=== PATIENT | male | born 1930 | race African-American/Black ===

== ENCOUNTER 2018-06-19 11:55 | Inpatient (IN) | payer MEDICARE, MEDICAID ==
[~2018-06-19] VITALS: Ht 182.9 cm; Wt 100.2 kg
[2018-06-19] MEDS ORDERED: FUROSEMIDE 20MG/2ML VIAL IVP ONE (12:30)
[2018-06-19] MEDS ORDERED: LEVETIRACETAM 500MG PREMIX 100 ML IV ONE (12:30)
[2018-06-19 12:52] LABS: BASOPHILS % 0.7 % (0.0-2.0); EOSINOPHILS % 4.8 % (0.0-5.0); HEMATOCRIT. 37.2 % (42.0-52.0); HEMOGLOBIN. 12.4 g/dL (14.0-18.0); LYMPHOCYTES % 35.4 % (20.0-50.0); MEAN CORPUSCULAR HEMOGLOBIN 29.6 pg (28.0-32.0); MEAN CORPUSCULAR VOLUME 88.4 fL (80.0-94.0); MEAN PLATELET VOLUME 9.1 fl (7.4-10.4); MONOCYTES % 13.8 % (2.0-8.0); NEUTROPHILS % 45.3 % (40.0-76.0); PLATELET 89 x1000/uL (130-400); RED CELL DISTRIBUTION WIDTH 13.6 % (11.6-14.6)
[2018-06-19 12:57] LABS: CHLORIDE 112 mEq/L (98-107)
[2018-06-19 12:59] LABS: INR 1.2; PARTIAL THROMBOPLASTIN TIME 30.2 sec (23.4-31.0); PROTHROMBIN TIME 12.2 sec (9.1-11.1)
[2018-06-19 13:01] LABS: ETHANOL BLOOD < 10 mg/dL
[2018-06-19 14:32] LABS: CLARITY URINE CLEAR (CLEAR); COLOR URINE YELLOW (YELLOW); KETONES URINE NEGATIVE (NEGATIVE); LEUKOCYTE ESTERASE URINE TRACE (NEGATIVE); NITRITE URINE NEGATIVE (NEGATIVE); OCCULT BLOOD URINE NEGATIVE (NEGATIVE); PROTEIN URINE NEGATIVE (NEGATIVE); SPECIFIC GRAVITY URINE 1.015 (1.005-1.030); UROBILINOGEN URINE 0.2 E.U./dL (0.2-1.0)
[2018-06-19 14:35] VITALS: BP 148/65
[2018-06-19] MEDS ORDERED: DIPHENHYDRAMINE 50MG/ML VIAL IV PRN (15:00)
[2018-06-19] MEDS ORDERED: ACETAMINOPHEN 650MG SUPP PR PRN (15:00)
[2018-06-19] MEDS ORDERED: MAGNESIUM/ALUMINUM HYDROXIDE/SIMETHICONE 30ML UDC PO PRN (15:00)
[2018-06-19] MEDS ORDERED: DOCUSATE SODIUM 100MG CAPSULE PO PRN (15:00)
[2018-06-19] MEDS ORDERED: HYDROCODONE/ACETAMINOPHEN 5/325MG TABLET PO PRN (15:00)
[2018-06-19] MEDS ORDERED: CLONIDINE 0.1MG TABLET PO PRN (15:00)
[2018-06-19] MEDS ORDERED: ACETAMINOPHEN 325MG TABLET PO PRN (15:00)
[2018-06-19] MEDS ORDERED: GUAIFENESIN 200MG/10ML SUGAR FREE UDC PO PRN (15:00)
[2018-06-19] MEDS ORDERED: ONDANSETRON HCL 4MG/2ML INJ IV PRN (15:00)
[2018-06-19] MEDS ORDERED: NA PHOS,M-B/NA PHOS,DI-BA ENEMA 118ML PR PRN (15:00)
[2018-06-19] MEDS ORDERED: HYDROCODONE/ACETAMINOPHEN 10/325MG TABLET PO PRN (15:00)
[2018-06-19] MEDS ORDERED: IPRATROPIUM/ALBUTEROL 0.5-3(2.5)MG/3ML NEB INH PRN (15:00)
[2018-06-19 15:16] LABS: *AMPHETAMINES SCREEN URINE NEGATIVE (NEGATIVE); *BARBITURATES SCREEN URINE NEGATIVE (NEGATIVE); *BENZODIAZEPINES SCREEN URINE NEGATIVE (NEGATIVE); *COCAINE SCREEN URINE NEGATIVE (NEGATIVE); METHADONE URINE SCREEN NEGATIVE (NEGATIVE); OPIATES URINE SCREEN PRESUMTIVE POSITIVE (NEGATIVE)
[2018-06-19 15:17] LABS: CANNABINOID URINE SCREEN NEGATIVE (NEGATIVE); PHENCYCLIDINE URINE SCREEN NEGATIVE (NEGATIVE)
[2018-06-19 16:00] VITALS: BP 130/63
[2018-06-19 20:00] VITALS: BP 147/85
[2018-06-19] MEDS: SODIUM CHLORIDE 0.9% INJ 3ML FLUSH IVF SCH (21:54)
[2018-06-19 23:13] LABS: CREATINE KINASE 89 IU/L (39-308)
[2018-06-19 23:15] LABS: CREATINE KINASE MB FRACTION < 1.0 ng/mL (0.5-3.6)
[2018-06-19] MEDS ORDERED: VALS160T2 MT (23:54)
[2018-06-19] MEDS ORDERED: PREG150C MT (23:54)
[2018-06-19] MEDS ORDERED: MULT-1146 MT (23:54)
[2018-06-19] MEDS ORDERED: DOCU-138 MT (23:54)
[2018-06-19] MEDS ORDERED: ASPI-1159 MT (23:54)
[2018-06-19] MEDS ORDERED: HYDR-4135 MT (23:54)
[2018-06-19] MEDS ORDERED: KEPP500 MT (23:54)
[2018-06-19] MEDS: LEVETIRACETAM 500MG TABLET PO SCH (23:56)
[2018-06-20] VITALS: BP 99/61
[2018-06-20 06:29] LABS: HEMATOCRIT. 34.5 % (42.0-52.0); HEMOGLOBIN. 11.9 g/dL (14.0-18.0); MEAN CORPUSCULAR HEMOGLOBIN 30.5 pg (28.0-32.0); MEAN CORPUSCULAR VOLUME 88.3 fL (80.0-94.0); MEAN PLATELET VOLUME 9.7 fl (7.4-10.4); PLATELET 86 x1000/uL (130-400); RED BLOOD CELL COUNT 3.91 mill/uL (4.7-6.1); RED CELL DISTRIBUTION WIDTH 13.8 % (11.6-14.6)
[2018-06-20] MEDS: SODIUM CHLORIDE 0.9% INJ 3ML FLUSH IVF SCH ×3 (06:30→22:01)
[2018-06-20 06:50] LABS: CHLORIDE 109 mEq/L (98-107)
[2018-06-20 07:12] LABS: CREATINE KINASE 83 IU/L (39-308); HDL CHOLESTEROL 38 mg/dL (40-59); LDL CHOLESTEROL 65 mg/dL (5-100)
[2018-06-20 07:17] LABS: CREATINE KINASE MB FRACTION < 1.0 ng/mL (0.5-3.6)
[2018-06-20 08:00] VITALS: BP 124/50
[2018-06-20] MEDS: LEVETIRACETAM 500MG TABLET PO SCH ×2 (08:37→21:55)
[2018-06-20] MEDS: FUROSEMIDE 40MG/4ML VIAL IV SCH (08:37)
[2018-06-20 10:02] LABS: PLATELET ESTIMATE DECREASED
[2018-06-20 12:00] VITALS: BP 105/58
[2018-06-20 16:00] VITALS: BP 129/64
[2018-06-20 20:00] VITALS: BP 143/63
[2018-06-21] VITALS: BP 149/58
[2018-06-21 04:00] VITALS: BP 131/83
[2018-06-21] MEDS: SODIUM CHLORIDE 0.9% INJ 3ML FLUSH IVF SCH ×3 (06:04→21:57)
[2018-06-21 08:00] VITALS: BP 131/78
[2018-06-21] MEDS: LEVETIRACETAM 500MG TABLET PO SCH ×2 (08:32→21:56)
[2018-06-21] MEDS: FUROSEMIDE 40MG/4ML VIAL IV SCH (08:32)
[2018-06-21 11:42] LABS: HEMATOCRIT. 37.4 % (42.0-52.0); HEMOGLOBIN. 12.6 g/dL (14.0-18.0); MEAN CORPUSCULAR HEMOGLOBIN 29.8 pg (28.0-32.0); MEAN CORPUSCULAR VOLUME 88.6 fL (80.0-94.0); MEAN PLATELET VOLUME 9.1 fl (7.4-10.4); PLATELET 86 x1000/uL (130-400); RED BLOOD CELL COUNT 4.22 mill/uL (4.7-6.1); RED CELL DISTRIBUTION WIDTH 14.2 % (11.6-14.6)
[2018-06-21 11:47] LABS: CHLORIDE 108 mEq/L (98-107)
[2018-06-21 12:00] VITALS: BP 111/51
[2018-06-21 13:37] LABS: PLATELET ESTIMATE DECREASED
[2018-06-21 16:17] VITALS: BP 113/46
[2018-06-21 20:00] VITALS: BP 105/47
[2018-06-22] VITALS: BP 112/64
[2018-06-22 04:00] VITALS: BP 106/53
[2018-06-22] MEDS: SODIUM CHLORIDE 0.9% INJ 3ML FLUSH IVF SCH (05:38)
[2018-06-22 08:00] VITALS: BP 113/65
[2018-06-22] MEDS: LEVETIRACETAM 500MG TABLET PO SCH ×3 (09:00→20:10)
[2018-06-22] MEDS: FUROSEMIDE 40MG/4ML VIAL IV SCH (09:00)
[2018-06-22 12:00] VITALS: BP 110/58
[2018-06-22 14:06] VITALS: BP 110/58
== END 2018-06-22 21:18 | DRG 682 ==
LOC: ER 11:55 → 5WST 12:27 → EDBEDREQ 12:32 → EDBEDREQTM 12:32 → ENRESERV 12:36 → 5WST 13:58
PROVIDERS: ADMIT Family Medicine; ATTEND Family Medicine
DX: N17.9 Acute kidney failure, unspecified (principal); E43 Unspecified severe protein-calorie malnutrition; I50.41 Acute combined systolic (congestive) and diastolic (congestive) heart failure; I13.0 Hypertensive heart and chronic kidney disease with heart failure and stage 1 through stage 4 chronic kidney disease, or unspecified chronic kidney disease; N18.9 Chronic kidney disease, unspecified; E11.22 Type 2 diabetes mellitus with diabetic chronic kidney disease; D63.8 Anemia in other chronic diseases classified elsewhere; R00.1 Bradycardia, unspecified; E11.41 Type 2 diabetes mellitus with diabetic mononeuropathy; E78.5 Hyperlipidemia, unspecified; F03.90 Unspecified dementia, unspecified severity, without behavioral disturbance, psychotic disturbance, mood disturbance, and anxiety; G40.909 Epilepsy, unspecified, not intractable, without status epilepticus; G57.90 Unspecified mononeuropathy of unspecified lower limb; I25.10 Atherosclerotic heart disease of native coronary artery without angina pectoris; I48.91 Unspecified atrial fibrillation; Z87.891 Personal history of nicotine dependence; Z68.30 Body mass index [BMI] 30.0-30.9, adult
CPT/HCPCS: 36415; 71045; 80053; 80061; 80305; 81003; 82550; 82553; 83036; 83690; 83880; 84443; 84484; 85025; 85610; 85730; 93005; 93306; 93970; 96365; 96375; 99285; G0482; J1940; J1953; J7030

== ENCOUNTER 2020-01-10 09:22 | Inpatient (IN) | payer MEDICARE, MEDICAID ==
[~2020-01-10] VITALS: Ht 172.7 cm; Wt 79.4 kg
[~2020-01-10 09:22] MED LIST: ASPI-1497 MT; DOCU-138 MT; HYDR-4135 MT; KEPP500 MT; MULT-1146 MT; PREG150C MT; VALS160T2 MT
[2020-01-10] MEDS ORDERED: ACETAMINOPHEN 650MG SUPP PR ONE (09:45)
[2020-01-10] MEDS ORDERED: VANCOMYCIN 1 G PREMIX 200 ML IV ONE (09:45)
[2020-01-10] MEDS ORDERED: PIPERACILLIN/TAZ 3.375G PREMIX 50 ML IV ONE (09:45)
[2020-01-10 10:04] LABS: HEMATOCRIT. 47.3 % (42.0-52.0); HEMOGLOBIN. 15.2 g/dL (14.0-18.0); MEAN CORPUSCULAR HEMOGLOBIN 29.1 pg (28.0-32.0); MEAN CORPUSCULAR VOLUME 90.3 fL (80.0-94.0); MEAN PLATELET VOLUME 10.8 fl (7.4-10.4); PLATELET 156 x1000/uL (130-400); RED BLOOD CELL COUNT 5.24 mill/uL (4.7-6.1); RED CELL DISTRIBUTION WIDTH 14.5 % (11.6-14.6)
[2020-01-10 10:09] LABS: CHLORIDE 122 mEq/L (98-107)
[2020-01-10 10:20] LABS: BG CARBOXYHEMOGLOBIN 0.3 % (0.5-1.5); BG DEOXYHEMOGLOBIN 5.4 % (0.0-5.0); BG FRACTION INSPIRED OXYGEN 99.8; BG HCO3 ACT 13.1 mmol/L (22.0-26.0); BG METHEMOGLOBIN 0.4 % (0.0-1.5); BG OXYGEN SATURATION 94.6 % (92.0-98.5); BG OXYHEMOGLOBIN 93.9 % (94.0-97.0); BG PCO2 20.9 mmHg (35.0-45.0); BG PH 7.415 (7.350-7.450); BG PO2 75.3 mmHg (75.0-100.0); BG SAMPLE SITE LEFT BRACHIAL; BG TOTAL HEMOGLOBIN 14.6 g/dL (12.0-18.0); BG VENT MODE MASK - NRB
[2020-01-10 10:22] LABS: D-DIMER 8.2 mg/L FEU (<0.50); INR 1.2; PROTHROMBIN TIME 13.4 sec (9.6-11.0)
[2020-01-10 10:42] LABS: CREATINE KINASE 1037 IU/L (39-308)
[2020-01-10] MEDS ORDERED: ENOXAPARIN 60MG/0.6ML SYR SUBCUT ONE (10:45)
[2020-01-10 10:48] LABS: CLARITY URINE CLOUDY (CLEAR); COLOR URINE DARK YELLOW (YELLOW); KETONES URINE TRACE (NEGATIVE); LEUKOCYTE ESTERASE URINE TRACE (NEGATIVE); NITRITE URINE NEGATIVE (NEGATIVE); OCCULT BLOOD URINE 2+ (NEGATIVE); PROTEIN URINE 2+ (NEGATIVE); SPECIFIC GRAVITY URINE 1.021 (1.005-1.030)
[2020-01-10 11:21] LABS: PLATELET ESTIMATE NORMAL
[2020-01-10] MEDS: NOREPINEPHRINE 4MG/250ML PMX 250 ML IV STA ×2 (13:19→15:19)
[2020-01-10] MEDS ORDERED: ONDANSETRON HCL 4MG/2ML INJ IV PRN (15:15)
[2020-01-10] MEDS ORDERED: ACETAMINOPHEN 650MG SUPP PR PRN (15:15)
[2020-01-10] MEDS ORDERED: DIPHENHYDRAMINE 50MG/ML VIAL IV PRN (15:15)
[2020-01-10] MEDS ORDERED: DOCUSATE SODIUM 100MG CAPSULE PO PRN (15:15)
[2020-01-10] MEDS: METHYLPREDNISOLONE SOD SUCC 40 MG/ML VIAL IV SCH (16:52)
[2020-01-10] MEDS ORDERED: SODIUM BICARBONATE 50 MEQ in DEXTROSE 5% WATER 1,000 ML IV ONE (17:00)
[2020-01-10] MEDS ORDERED: PIPERACILLIN/TAZ 3.375G PREMIX 50 ML IV NR (18:00)
[2020-01-11] MEDS ORDERED: PIPERACILLIN/TAZOBACTAM 3.375 G in DEXT 5% WATER 100 ML IV SCH (02:00)
[2020-01-11] MEDS ORDERED: SODIUM CHLORIDE 0.45% 1,000 ML IV ONE (04:00)
[2020-01-11 04:51] LABS: CHLORIDE 119 mEq/L (98-107)
[2020-01-11] MEDS ORDERED: NOREPINEPHRINE 4 MG in DEXT 5% WATER 246 ML IV PRN (06:15)
[2020-01-11] MEDS ORDERED: NOREPINEPHRINE 4MG/250ML PMX 250 ML IV PRN (06:30)
[2020-01-11] MEDS ORDERED: SODIUM CHLORIDE 0.45% 1,000 ML IV SCH (08:00)
[2020-01-11] MEDS: METHYLPREDNISOLONE SOD SUCC 40 MG/ML VIAL IV SCH ×2 (09:00→17:00)
[2020-01-11] MEDS: DEXTROSE 5% WATER 1,000 ML IV SCH ×2 (10:30→22:10)
[2020-01-11] MEDS: PIPERACILLIN/TAZOBACTAM 2.25 G in DEXTROSE 5% WATER 50 ML IV SCH ×2 (11:00→21:18)
[2020-01-11] MEDS: ENOXAPARIN 30MG/0.3ML SYR SUBCUT SCH (11:00)
[2020-01-11] MEDS: ASPIRIN 81MG TABLET PO SCH (11:15)
[2020-01-11 12:10] LABS: HEPATITIS B SURFACE ANTIGEN NEGATIVE
[2020-01-11 12:40] LABS: HEPATITIS A AB IGM NEGATIVE (NEGATIVE)
[2020-01-11] MEDS: CITRIC ACID/SODIUM CITRATE SOLN 30ML UDC PO SCH ×2 (13:00→17:00)
[2020-01-11] MEDS: MIDODRINE HCL 5MG TABLET PO SCH (17:30)
[2020-01-11 20:00] VITALS: BP 111/58
[2020-01-11] MEDS ORDERED: DEXTROSE 50% WATER 50ML SYRINGE IV PRN (22:45)
[2020-01-12] VITALS: BP 105/58
[2020-01-12] MEDS: BLOOD SUGAR DIAGNOSTIC STRIP TEST SCH ×6 (00:45→20:54)
[2020-01-12] MEDS: INSULIN LISPRO 100 UNITS/ML SUBCUT SCH ×5 (00:51→20:55)
[2020-01-12] MEDS: PIPERACILLIN/TAZOBACTAM 2.25 G in DEXTROSE 5% WATER 50 ML IV SCH ×3 (03:18→21:36)
[2020-01-12 04:00] VITALS: BP 110/57
[2020-01-12 08:00] VITALS: BP 93/62
[2020-01-12] MEDS: METHYLPREDNISOLONE SOD SUCC 40 MG/ML VIAL IV SCH ×2 (08:18→16:00)
[2020-01-12] MEDS: ASPIRIN 81MG TABLET PO SCH (08:19)
[2020-01-12] MEDS: CITRIC ACID/SODIUM CITRATE SOLN 30ML UDC PO SCH ×3 (08:19→16:17)
[2020-01-12] MEDS: MIDODRINE HCL 5MG TABLET PO SCH ×3 (08:19→16:17)
[2020-01-12] MEDS: ENOXAPARIN 30MG/0.3ML SYR SUBCUT SCH (11:00)
[2020-01-12 11:34] LABS: HEMATOCRIT. 35.3 % (42.0-52.0); HEMOGLOBIN. 11.9 g/dL (14.0-18.0); MEAN CORPUSCULAR HEMOGLOBIN 29.3 pg (28.0-32.0); MEAN CORPUSCULAR VOLUME 86.9 fL (80.0-94.0); MEAN PLATELET VOLUME 10.8 fl (7.4-10.4); PLATELET 87 x1000/uL (130-400); RED BLOOD CELL COUNT 4.07 mill/uL (4.7-6.1); RED CELL DISTRIBUTION WIDTH 14.1 % (11.6-14.6)
[2020-01-12 12:00] VITALS: BP 119/63
[2020-01-12 13:02] LABS: PLATELET ESTIMATE DECREASED
[2020-01-12] MEDS: DEXTROSE 5% WATER 1,000 ML IV SCH ×2 (13:03→21:37)
[2020-01-12] MEDS ORDERED: VANCOMYCIN 1 G PREMIX 200 ML IV NR (15:00)
[2020-01-12 16:00] VITALS: BP 124/65
[2020-01-12 18:07] LABS: COVID-19 PCR RNA DETECTED
[2020-01-12 18:08] LABS: COVID-19 PCR RNA NOT DETECTED
[2020-01-12 20:00] VITALS: BP 128/67
[2020-01-13 00:22] VITALS: BP 132/69
[2020-01-13 04:00] VITALS: BP 136/65
[2020-01-13] MEDS: PIPERACILLIN/TAZOBACTAM 2.25 G in DEXTROSE 5% WATER 50 ML IV SCH ×3 (04:22→20:00)
[2020-01-13 05:18] LABS: HEMATOCRIT. 37.1 % (42.0-52.0); HEMOGLOBIN. 12.5 g/dL (14.0-18.0); MEAN CORPUSCULAR HEMOGLOBIN 29.6 pg (28.0-32.0); MEAN CORPUSCULAR VOLUME 87.7 fL (80.0-94.0); MEAN PLATELET VOLUME 11.6 fl (7.4-10.4); PLATELET 103 x1000/uL (130-400); RED BLOOD CELL COUNT 4.22 mill/uL (4.7-6.1); RED CELL DISTRIBUTION WIDTH 14.2 % (11.6-14.6)
[2020-01-13 05:28] LABS: CHLORIDE 111 mEq/L (98-107)
[2020-01-13] MEDS: INSULIN LISPRO 100 UNITS/ML SUBCUT SCH ×4 (06:22→21:00)
[2020-01-13] MEDS: BLOOD SUGAR DIAGNOSTIC STRIP TEST SCH ×4 (06:22→21:49)
[2020-01-13] MEDS ORDERED: DEXTROSE 50% WATER 50ML SYRINGE IV PRN ×2 (07:15)
[2020-01-13 07:32] LABS: PLATELET ESTIMATE DECREASED
[2020-01-13] MEDS ORDERED: INSULIN REGULAR (HUMULIN R) 300UNITS/3ML SUBCUT SCH (08:00)
[2020-01-13] MEDS: CITRIC ACID/SODIUM CITRATE SOLN 30ML UDC PO SCH ×3 (08:44→17:00)
[2020-01-13] MEDS: SODIUM CHLORIDE 0.45% 1,000 ML IV SCH ×3 (08:45→21:49)
[2020-01-13] MEDS: METHYLPREDNISOLONE SOD SUCC 40 MG/ML VIAL IV SCH (08:45)
[2020-01-13] MEDS: ASPIRIN 81MG TABLET PO SCH (08:53)
[2020-01-13] MEDS: MIDODRINE HCL 5MG TABLET PO SCH ×3 (09:00→17:00)
[2020-01-13 09:54] VITALS: BP 158/87
[2020-01-13] MEDS ORDERED: BLOOD SUGAR DIAGNOSTIC STRIP TEST SCH (11:40)
[2020-01-13] MEDS ORDERED: IPRATROPIUM/ALBUTEROL 0.5-3(2.5)MG/3ML NEB HHN SCH (12:00)
[2020-01-13 12:50] VITALS: BP 131/86
[2020-01-13] MEDS ORDERED: ACETYLCYSTEINE 100MG/ML 10% VIAL 4ML INH SCH (14:00)
[2020-01-13] MEDS: INSULIN GLARGINE UD 100 UNITS/ML SYR SUBCUT SCH (15:21)
[2020-01-13 17:42] VITALS: BP 122/82
[2020-01-13 20:00] VITALS: BP 131/75
[2020-01-13] MEDS ORDERED: VANCOMYCIN 1 G PREMIX 200 ML IV SCH (21:00)
[2020-01-14] VITALS (7 sets, daily range): BP systolic 128–146; BP diastolic 66–86
[2020-01-14] MEDS: PIPERACILLIN/TAZOBACTAM 2.25 G in DEXTROSE 5% WATER 50 ML IV SCH (04:37)
[2020-01-14] MEDS: BLOOD SUGAR DIAGNOSTIC STRIP TEST SCH ×4 (05:36→21:39)
[2020-01-14] MEDS: INSULIN LISPRO 100 UNITS/ML SUBCUT SCH ×4 (05:37→22:05)
[2020-01-14 07:43] LABS: HEMATOCRIT. 32.4 % (42.0-52.0); HEMOGLOBIN. 11.1 g/dL (14.0-18.0); MEAN CORPUSCULAR HEMOGLOBIN 29.6 pg (28.0-32.0); MEAN CORPUSCULAR VOLUME 86.7 fL (80.0-94.0); MEAN PLATELET VOLUME 11.1 fl (7.4-10.4); PLATELET 100 x1000/uL (130-400); RED BLOOD CELL COUNT 3.74 mill/uL (4.7-6.1)
[2020-01-14] MEDS: MIDODRINE HCL 5MG TABLET PO SCH (09:00)
[2020-01-14] MEDS: ASPIRIN 81MG TABLET PO SCH (09:58)
[2020-01-14] MEDS: CITRIC ACID/SODIUM CITRATE SOLN 30ML UDC PO SCH ×3 (09:58→17:00)
[2020-01-14] MEDS: SODIUM CHLORIDE 0.45% 1,000 ML IV SCH (10:00)
[2020-01-14] MEDS: INSULIN GLARGINE UD 100 UNITS/ML SYR SUBCUT SCH (10:00)
[2020-01-14 10:28] LABS: NUCLEATED RED BLOOD CELLS 2 /100 WBC
[2020-01-14 10:29] LABS: PLATELET ESTIMATE DECREASED
[2020-01-14] MEDS ORDERED: POTASSIUM CHLORIDE INJ 40 MEQ in DEXT 5% WATER 250 ML IV NR (11:00)
[2020-01-14] MEDS: DEXTROSE 5% WATER 1,000 ML IV SCH ×2 (14:05→22:06)
[2020-01-15] VITALS: BP 144/89
[2020-01-15 04:00] VITALS: BP 149/69
[2020-01-15] MEDS: BLOOD SUGAR DIAGNOSTIC STRIP TEST SCH ×4 (06:09→21:31)
[2020-01-15] MEDS: DEXTROSE 5% WATER 1,000 ML IV SCH ×2 (06:30→17:44)
[2020-01-15 08:00] VITALS: BP 146/76
[2020-01-15] MEDS: ASPIRIN 81MG TABLET PO SCH (08:17)
[2020-01-15] MEDS: CITRIC ACID/SODIUM CITRATE SOLN 30ML UDC PO SCH ×5 (08:18→17:00)
[2020-01-15] MEDS: INSULIN LISPRO 100 UNITS/ML SUBCUT SCH ×4 (08:26→21:00)
[2020-01-15] MEDS: INSULIN GLARGINE UD 100 UNITS/ML SYR SUBCUT SCH (09:29)
[2020-01-15 09:39] LABS: HEMOGLOBIN. 10.6 g/dL (14.0-18.0); MEAN CORPUSCULAR HEMOGLOBIN 29.8 pg (28.0-32.0); MEAN CORPUSCULAR VOLUME 87.7 fL (80.0-94.0); MEAN PLATELET VOLUME 10.1 fl (7.4-10.4); PLATELET 94 x1000/uL (130-400); RED BLOOD CELL COUNT 3.54 mill/uL (4.7-6.1); RED CELL DISTRIBUTION WIDTH 13.6 % (11.6-14.6)
[2020-01-15 11:00] LABS: PLATELET ESTIMATE DECREASED
[2020-01-15 12:00] VITALS: BP 165/89
[2020-01-15] MEDS: MEGESTROL ACETATE 400 MG/10 ML UDC PO SCH (12:47)
[2020-01-15] MEDS ORDERED: POTASSIUM CHLORIDE INJ 40 MEQ in DEXT 5% WATER 250 ML IV SCH (13:00)
[2020-01-15] MEDS ORDERED: MAGNESIUM 4 G PREMIX 100 ML IV SCH (13:00)
[2020-01-15 16:00] VITALS: BP 163/81
[2020-01-15 20:00] VITALS: BP 146/81
[2020-01-16] VITALS: BP 146/72
[2020-01-16 02:09] VITALS: BP 126/65
[2020-01-16] MEDS: DEXTROSE 5% WATER 1,000 ML IV SCH ×2 (02:15→14:22)
[2020-01-16 04:00] VITALS: BP 145/84
[2020-01-16] MEDS: BLOOD SUGAR DIAGNOSTIC STRIP TEST SCH ×4 (06:16→21:07)
[2020-01-16 06:59] LABS: HEMATOCRIT. 30.6 % (42.0-52.0); HEMOGLOBIN. 10.6 g/dL (14.0-18.0); MEAN CORPUSCULAR HEMOGLOBIN 29.9 pg (28.0-32.0); MEAN CORPUSCULAR VOLUME 86.6 fL (80.0-94.0); MEAN PLATELET VOLUME 10.4 fl (7.4-10.4); PLATELET 109 x1000/uL (130-400); RED BLOOD CELL COUNT 3.54 mill/uL (4.7-6.1); RED CELL DISTRIBUTION WIDTH 13.8 % (11.6-14.6)
[2020-01-16] MEDS: INSULIN LISPRO 100 UNITS/ML SUBCUT SCH ×4 (07:10→21:11)
[2020-01-16 07:19] LABS: PHOSPHORUS 1.6 mg/dL (2.5-4.9)
[2020-01-16 08:00] VITALS: BP 143/85
[2020-01-16] MEDS: CITRIC ACID/SODIUM CITRATE SOLN 30ML UDC PO SCH ×4 (09:00→17:00)
[2020-01-16] MEDS: MEGESTROL ACETATE 400 MG/10 ML UDC PO SCH ×2 (09:00→10:09)
[2020-01-16] MEDS ORDERED: POTASSIUM CHLORIDE 20MEQ/PACKET PO NR (09:30)
[2020-01-16] MEDS: ASPIRIN 81MG TABLET PO SCH (10:09)
[2020-01-16] MEDS: INSULIN GLARGINE UD 100 UNITS/ML SYR SUBCUT SCH (10:10)
[2020-01-16] MEDS ORDERED: POTASSIUM PHOS,M-BASIC-D-BASIC 20 MMOL in DEXT 5% WATER 243.3333 ML IV NR (11:00)
[2020-01-16 12:00] VITALS: BP 96/51
[2020-01-16 13:25] LABS: NUCLEATED RED BLOOD CELLS 1 /100 WBC; PLATELET ESTIMATE SLIGHTLY DECREASED
[2020-01-16 16:00] VITALS: BP 144/79
[2020-01-17 04:00] VITALS: BP 111/69
[2020-01-17] MEDS: DEXTROSE 5% WATER 1,000 ML IV SCH ×2 (05:48→17:37)
[2020-01-17] MEDS: BLOOD SUGAR DIAGNOSTIC STRIP TEST SCH ×4 (06:25→21:00)
[2020-01-17] MEDS: INSULIN LISPRO 100 UNITS/ML SUBCUT SCH ×4 (06:30→21:00)
[2020-01-17 08:00] VITALS: BP 127/73
[2020-01-17] MEDS: ASPIRIN 81MG TABLET PO SCH ×2 (09:00→09:14)
[2020-01-17] MEDS: MEGESTROL ACETATE 400 MG/10 ML UDC PO SCH ×2 (09:00→09:13)
[2020-01-17] MEDS: CITRIC ACID/SODIUM CITRATE SOLN 30ML UDC PO SCH ×2 (09:00→09:13)
[2020-01-17 09:04] LABS: HEMATOCRIT. 32.2 % (42.0-52.0); HEMOGLOBIN. 10.8 g/dL (14.0-18.0); MEAN CORPUSCULAR HEMOGLOBIN 29.7 pg (28.0-32.0); MEAN CORPUSCULAR VOLUME 88.3 fL (80.0-94.0); MEAN PLATELET VOLUME 10.4 fl (7.4-10.4); PLATELET 116 x1000/uL (130-400); RED BLOOD CELL COUNT 3.65 mill/uL (4.7-6.1); RED CELL DISTRIBUTION WIDTH 13.8 % (11.6-14.6)
[2020-01-17 09:25] LABS: PHOSPHORUS 2.1 mg/dL (2.5-4.9)
[2020-01-17] MEDS: METHYLPREDNISOLONE SOD SUCC 40 MG/ML VIAL IV SCH ×2 (10:00→21:38)
[2020-01-17] MEDS: INSULIN GLARGINE UD 100 UNITS/ML SYR SUBCUT SCH (10:49)
[2020-01-17 12:00] VITALS: BP 137/38
[2020-01-17] MEDS: POTASSIUM CHLORIDE 20MEQ TABLET SR PO SCH (12:00)
[2020-01-17 12:13] LABS: PLATELET ESTIMATE DECREASED
[2020-01-17] MEDS ORDERED: POTASSIUM PHOS,M-BASIC-D-BASIC 20 MMOL in DEXT 5% WATER 243.3333 ML IV SCH (13:00)
[2020-01-17] MEDS ORDERED: MAGNESIUM 2 G PREMIX 50 ML IV SCH (13:00)
[2020-01-17 16:00] VITALS: BP 124/71
[2020-01-17 20:00] VITALS: BP 161/82
[2020-01-18] VITALS: BP 112/96
[2020-01-18 04:00] VITALS: BP 166/67
[2020-01-18] MEDS: BLOOD SUGAR DIAGNOSTIC STRIP TEST SCH ×4 (06:24→21:14)
[2020-01-18] MEDS: INSULIN LISPRO 100 UNITS/ML SUBCUT SCH ×4 (06:50→21:43)
[2020-01-18 08:00] VITALS: BP 133/67
[2020-01-18] MEDS: MEGESTROL ACETATE 400 MG/10 ML UDC PO SCH ×2 (08:12→09:00)
[2020-01-18] MEDS: METHYLPREDNISOLONE SOD SUCC 40 MG/ML VIAL IV SCH ×2 (08:13→21:15)
[2020-01-18] MEDS: POTASSIUM CHLORIDE 20MEQ TABLET SR PO SCH ×2 (08:13→08:27)
[2020-01-18] MEDS: ASPIRIN 81MG TABLET PO SCH ×2 (08:13→09:00)
[2020-01-18] MEDS: INSULIN GLARGINE UD 100 UNITS/ML SYR SUBCUT SCH (10:30)
[2020-01-18 12:00] VITALS: BP 158/63
[2020-01-18] MEDS ORDERED: POTASSIUM CHLORIDE INJ 40 MEQ in DEXT 5% WATER 250 ML IV SCH (12:00)
[2020-01-18 16:00] VITALS: BP 149/78
[2020-01-18 20:00] VITALS: BP 155/77
[2020-01-19] VITALS: BP 139/77
[2020-01-19 04:00] VITALS: BP 163/69
[2020-01-19] MEDS: BLOOD SUGAR DIAGNOSTIC STRIP TEST SCH ×4 (06:51→21:00)
[2020-01-19] MEDS: INSULIN LISPRO 100 UNITS/ML SUBCUT SCH ×4 (06:51→21:00)
[2020-01-19 08:00] VITALS: BP 150/72
[2020-01-19] MEDS: METHYLPREDNISOLONE SOD SUCC 40 MG/ML VIAL IV SCH ×3 (08:10→21:00)
[2020-01-19] MEDS: POTASSIUM CHLORIDE 20MEQ TABLET SR PO SCH (08:10)
[2020-01-19 08:47] LABS: HEMATOCRIT. 31.8 % (42.0-52.0); HEMOGLOBIN. 10.9 g/dL (14.0-18.0); MEAN CORPUSCULAR HEMOGLOBIN 29.8 pg (28.0-32.0); MEAN CORPUSCULAR VOLUME 86.9 fL (80.0-94.0); MEAN PLATELET VOLUME 10.2 fl (7.4-10.4); PLATELET 145 x1000/uL (130-400); RED BLOOD CELL COUNT 3.66 mill/uL (4.7-6.1); RED CELL DISTRIBUTION WIDTH 13.9 % (11.6-14.6)
[2020-01-19] MEDS ORDERED: MAGNESIUM 2 G PREMIX 50 ML IV NR (10:30)
[2020-01-19] MEDS: INSULIN GLARGINE UD 100 UNITS/ML SYR SUBCUT SCH (10:30)
[2020-01-19 12:00] VITALS: BP 132/69
[2020-01-19 13:40] LABS: PLATELET ESTIMATE NORMAL
[2020-01-19 16:00] VITALS: BP 140/75
[2020-01-19 20:00] VITALS: BP 165/79
[2020-01-20] VITALS: BP 149/73
[2020-01-20 04:00] VITALS: BP 149/76
[2020-01-20] MEDS: BLOOD SUGAR DIAGNOSTIC STRIP TEST SCH ×4 (06:40→21:00)
[2020-01-20] MEDS: INSULIN LISPRO 100 UNITS/ML SUBCUT SCH ×4 (07:10→21:00)
[2020-01-20 08:00] VITALS: BP 149/69
[2020-01-20] MEDS: ASPIRIN 81MG TABLET PO SCH (09:00)
[2020-01-20] MEDS: MEGESTROL ACETATE 400 MG/10 ML UDC PO SCH (09:00)
[2020-01-20] MEDS: METHYLPREDNISOLONE SOD SUCC 40 MG/ML VIAL IV SCH ×2 (09:00→21:00)
[2020-01-20] MEDS: POTASSIUM CHLORIDE 20MEQ TABLET SR PO SCH (09:00)
[2020-01-20] MEDS: INSULIN GLARGINE UD 100 UNITS/ML SYR SUBCUT SCH (10:00)
[2020-01-20 12:00] VITALS: BP 148/72
[2020-01-20 16:00] VITALS: BP 165/63
[2020-01-20 16:25] LABS: HEMATOCRIT. 33.3 % (42.0-52.0); HEMOGLOBIN. 11.2 g/dL (14.0-18.0); MEAN CORPUSCULAR HEMOGLOBIN 29.5 pg (28.0-32.0); MEAN CORPUSCULAR VOLUME 87.7 fL (80.0-94.0); MEAN PLATELET VOLUME 10.1 fl (7.4-10.4); PLATELET 187 x1000/uL (130-400); RED BLOOD CELL COUNT 3.79 mill/uL (4.7-6.1)
[2020-01-20 17:02] LABS: PLATELET ESTIMATE NORMAL
[2020-01-20 20:00] VITALS: BP 139/66
[2020-01-21] MEDS: BLOOD SUGAR DIAGNOSTIC STRIP TEST SCH ×4 (06:40→21:00)
[2020-01-21] MEDS: INSULIN LISPRO 100 UNITS/ML SUBCUT SCH ×4 (06:51→21:00)
[2020-01-21 08:00] VITALS: BP 143/71
[2020-01-21] MEDS: POTASSIUM CHLORIDE 20MEQ TABLET SR PO SCH (09:00)
[2020-01-21] MEDS: MEGESTROL ACETATE 400 MG/10 ML UDC PO SCH (09:00)
[2020-01-21] MEDS: ASPIRIN 81MG TABLET PO SCH (09:00)
[2020-01-21] MEDS: INSULIN GLARGINE UD 100 UNITS/ML SYR SUBCUT SCH (10:00)
[2020-01-21 12:00] VITALS: BP 136/67
[2020-01-21 16:00] VITALS: BP 144/87
[2020-01-21 20:00] VITALS: BP 147/72
[2020-01-22] VITALS (8 sets, daily range): BP systolic 104–154; BP diastolic 69–85
[2020-01-22] MEDS: INSULIN LISPRO 100 UNITS/ML SUBCUT SCH ×4 (06:37→21:00)
[2020-01-22] MEDS: BLOOD SUGAR DIAGNOSTIC STRIP TEST SCH ×4 (06:37→21:00)
[2020-01-22] MEDS: POTASSIUM CHLORIDE 20MEQ TABLET SR PO SCH (08:55)
[2020-01-22] MEDS: ASPIRIN 81MG TABLET PO SCH (08:55)
[2020-01-22] MEDS: MEGESTROL ACETATE 400 MG/10 ML UDC PO SCH (08:55)
[2020-01-22] MEDS: INSULIN GLARGINE UD 100 UNITS/ML SYR SUBCUT SCH (10:00)
[2020-01-22] MEDS: QUETIAPINE FUMARATE 25MG TABLET PO SCH (21:00)
[2020-01-23] VITALS: BP 137/73
[2020-01-23 04:00] VITALS: BP 136/68
[2020-01-23] MEDS: BLOOD SUGAR DIAGNOSTIC STRIP TEST SCH ×4 (06:40→21:00)
[2020-01-23] MEDS: INSULIN LISPRO 100 UNITS/ML SUBCUT SCH ×4 (07:09→21:00)
[2020-01-23 08:00] VITALS: BP 170/102
[2020-01-23] MEDS: POTASSIUM CHLORIDE 20MEQ TABLET SR PO SCH (09:00)
[2020-01-23] MEDS: ASPIRIN 81MG TABLET PO SCH (09:00)
[2020-01-23] MEDS: MEGESTROL ACETATE 400 MG/10 ML UDC PO SCH (09:00)
[2020-01-23] MEDS: INSULIN GLARGINE UD 100 UNITS/ML SYR SUBCUT SCH (09:20)
[2020-01-23 12:53] VITALS: BP 109/75
[2020-01-23] MEDS: LORAZEPAM 2MG/ML CPJ IV PRN (15:37)
[2020-01-23 16:00] VITALS: BP 141/80
[2020-01-23 20:00] VITALS: BP 133/87
[2020-01-23] MEDS: QUETIAPINE FUMARATE 25MG TABLET PO SCH (21:00)
[2020-01-24 04:00] VITALS: BP 131/88
[2020-01-24] MEDS: INSULIN LISPRO 100 UNITS/ML SUBCUT SCH ×4 (06:18→20:50)
[2020-01-24] MEDS: BLOOD SUGAR DIAGNOSTIC STRIP TEST SCH ×4 (06:18→20:50)
[2020-01-24 08:00] VITALS: BP 130/76
[2020-01-24] MEDS: POTASSIUM CHLORIDE 20MEQ TABLET SR PO SCH (08:16)
[2020-01-24] MEDS: ASPIRIN 81MG TABLET PO SCH (08:16)
[2020-01-24] MEDS: MEGESTROL ACETATE 400 MG/10 ML UDC PO SCH (08:16)
[2020-01-24] MEDS: INSULIN GLARGINE UD 100 UNITS/ML SYR SUBCUT SCH (10:00)
[2020-01-24] MEDS ORDERED: HALOPERIDOL LACTATE 5MG/ML VIAL IM SCH (10:45)
[2020-01-24 12:00] VITALS: BP 140/84
[2020-01-24 16:00] VITALS: BP 118/71
[2020-01-24 20:00] VITALS: BP 148/91
[2020-01-24] MEDS: QUETIAPINE FUMARATE 25MG TABLET PO SCH (21:08)
[2020-01-24] MEDS: LORAZEPAM 2MG/ML CPJ IV PRN (23:35)
[2020-01-25] VITALS: BP 138/83
[2020-01-25 04:00] VITALS: BP 148/98
[2020-01-25] MEDS: BLOOD SUGAR DIAGNOSTIC STRIP TEST SCH ×4 (06:15→21:53)
[2020-01-25] MEDS: INSULIN LISPRO 100 UNITS/ML SUBCUT SCH ×4 (06:15→21:00)
[2020-01-25 07:21] LABS: BASOPHILS % 0.3 % (0.0-2.0); EOSINOPHILS % 0.7 % (0.0-5.0); HEMATOCRIT. 34.1 % (42.0-52.0); HEMOGLOBIN. 11.3 g/dL (14.0-18.0); LYMPHOCYTES % 8.1 % (20.0-50.0); MEAN CORPUSCULAR HEMOGLOBIN 29.6 pg (28.0-32.0); MEAN CORPUSCULAR VOLUME 88.9 fL (80.0-94.0); MEAN PLATELET VOLUME 9.6 fl (7.4-10.4); MONOCYTES % 11.9 % (2.0-8.0); PLATELET 178 x1000/uL (130-400); RED BLOOD CELL COUNT 3.83 mill/uL (4.7-6.1); RED CELL DISTRIBUTION WIDTH 14.3 % (11.6-14.6)
[2020-01-25 08:00] VITALS: BP 129/85
[2020-01-25] MEDS: POTASSIUM CHLORIDE 20MEQ TABLET SR PO SCH (09:00)
[2020-01-25] MEDS: MEGESTROL ACETATE 400 MG/10 ML UDC PO SCH (09:00)
[2020-01-25] MEDS: INSULIN GLARGINE UD 100 UNITS/ML SYR SUBCUT SCH (10:00)
[2020-01-25] MEDS ORDERED: MAGNESIUM 2 G PREMIX 50 ML IV NR (11:30)
[2020-01-25 11:39] LABS: HEMATOCRIT 36.2 % (42.0-52.0); HEMOGLOBIN 11.8 g/dL (14.0-18.0)
[2020-01-25] MEDS ORDERED: MAGNESIUM 2 G PREMIX 50 ML IV ONE (11:45)
[2020-01-25 12:00] VITALS: BP 123/90
[2020-01-25 12:01] LABS: TOTAL IRON BINDING CAPACITY 163 ug/dL (250-450)
[2020-01-25] MEDS: DEXTROSE 5% WATER 1,000 ML IV SCH (12:14)
[2020-01-25 16:00] VITALS: BP 116/76
[2020-01-25] MEDS: PANTOPRAZOLE SODIUM 40 MG/VIAL IV SCH (17:53)
[2020-01-25 20:00] VITALS: BP 120/80
[2020-01-25] MEDS: QUETIAPINE FUMARATE 25MG TABLET PO SCH (21:00)
[2020-01-26] VITALS: BP 113/75
[2020-01-26] MEDS: DEXTROSE 5% WATER 1,000 ML IV SCH ×2 (01:40→16:13)
[2020-01-26 04:00] VITALS: BP 109/61
[2020-01-26] MEDS: INSULIN LISPRO 100 UNITS/ML SUBCUT SCH ×4 (06:14→21:00)
[2020-01-26] MEDS: BLOOD SUGAR DIAGNOSTIC STRIP TEST SCH ×4 (06:14→21:43)
[2020-01-26 08:00] VITALS: BP 118/67
[2020-01-26] MEDS: POTASSIUM CHLORIDE 20MEQ TABLET SR PO SCH (09:00)
[2020-01-26] MEDS: MEGESTROL ACETATE 400 MG/10 ML UDC PO SCH (09:00)
[2020-01-26] MEDS: PANTOPRAZOLE SODIUM 40 MG/VIAL IV SCH ×2 (09:54→17:37)
[2020-01-26] MEDS: INSULIN GLARGINE UD 100 UNITS/ML SYR SUBCUT SCH (10:00)
[2020-01-26 12:00] VITALS: BP 122/70
[2020-01-26 16:00] VITALS: BP 115/72
[2020-01-26 20:00] VITALS: BP 106/74
[2020-01-26] MEDS: QUETIAPINE FUMARATE 25MG TABLET PO SCH (21:00)
[2020-01-27] VITALS: BP 115/70
[2020-01-27 04:00] VITALS: BP 118/53
[2020-01-27] MEDS: DEXTROSE 5% WATER 1,000 ML IV SCH ×2 (04:00→13:50)
[2020-01-27] MEDS: INSULIN LISPRO 100 UNITS/ML SUBCUT SCH ×4 (05:53→21:00)
[2020-01-27] MEDS: BLOOD SUGAR DIAGNOSTIC STRIP TEST SCH ×4 (05:53→20:51)
[2020-01-27 08:00] VITALS: BP 113/57
[2020-01-27] MEDS: PANTOPRAZOLE SODIUM 40 MG/VIAL IV SCH ×2 (09:00→16:53)
[2020-01-27] MEDS: POTASSIUM CHLORIDE 20MEQ TABLET SR PO SCH (09:00)
[2020-01-27] MEDS: MEGESTROL ACETATE 400 MG/10 ML UDC PO SCH (09:00)
[2020-01-27] MEDS: INSULIN GLARGINE UD 100 UNITS/ML SYR SUBCUT SCH (10:00)
[2020-01-27 12:00] VITALS: BP 104/71
[2020-01-27 16:00] VITALS: BP 150/72
[2020-01-27 20:50] VITALS: BP 100/70
[2020-01-27] MEDS: QUETIAPINE FUMARATE 25MG TABLET PO SCH (20:55)
[2020-01-28] VITALS (7 sets, daily range): BP systolic 103–152; BP diastolic 57–71
[2020-01-28] MEDS: DEXTROSE 5% WATER 1,000 ML IV SCH ×3 (00:51→20:25)
[2020-01-28] MEDS: BLOOD SUGAR DIAGNOSTIC STRIP TEST SCH ×4 (06:22→20:36)
[2020-01-28] MEDS: INSULIN LISPRO 100 UNITS/ML SUBCUT SCH ×4 (06:58→20:36)
[2020-01-28] MEDS: MEGESTROL ACETATE 400 MG/10 ML UDC PO SCH (09:00)
[2020-01-28] MEDS: POTASSIUM CHLORIDE 20MEQ TABLET SR PO SCH (09:00)
[2020-01-28] MEDS: PANTOPRAZOLE SODIUM 40 MG/VIAL IV SCH ×2 (09:31→16:40)
[2020-01-28] MEDS: INSULIN GLARGINE UD 100 UNITS/ML SYR SUBCUT SCH (09:32)
[2020-01-28] MEDS: QUETIAPINE FUMARATE 25MG TABLET PO SCH ×2 (20:25→20:36)
[2020-01-29] VITALS: BP 114/51
[2020-01-29 04:00] VITALS: BP 129/84
[2020-01-29] MEDS: INSULIN LISPRO 100 UNITS/ML SUBCUT SCH ×3 (05:54→17:10)
[2020-01-29] MEDS: BLOOD SUGAR DIAGNOSTIC STRIP TEST SCH ×3 (05:54→16:40)
[2020-01-29] MEDS: DEXTROSE 5% WATER 1,000 ML IV SCH (06:31)
[2020-01-29 08:00] VITALS: BP 109/66
[2020-01-29] MEDS: MEGESTROL ACETATE 400 MG/10 ML UDC PO SCH (09:00)
[2020-01-29] MEDS: POTASSIUM CHLORIDE 20MEQ TABLET SR PO SCH (09:00)
[2020-01-29] MEDS: PANTOPRAZOLE SODIUM 40 MG/VIAL IV SCH ×2 (09:00→17:00)
[2020-01-29] MEDS: INSULIN GLARGINE UD 100 UNITS/ML SYR SUBCUT SCH (09:21)
[2020-01-29 12:00] VITALS: BP 112/71
[2020-01-29 16:00] VITALS: BP 113/72
== END 2020-01-29 19:30 | DRG 871 ==
LOC: ER 09:22 → EDBEDREQSVC 09:52 → EDBEDREQTM 09:52 → EDBEDREQ 09:52 → EDBEDREQTM 11:11 → EDBEDREQSVC 11:12 → EDBEDREQ 14:32 → EDBEDREQTM 14:32 → EDBEDREQSVC 14:32 → EDBEDREQ 01-11 05:30 → EDBEDREQSVC 01-11 05:30 → EDBEDREQTM 01-11 05:30 → EDBEDREQSVC 01-11 06:05 → EDBEDREQ 01-11 06:33 → EDBEDREQSVC 01-11 17:55 → ENRESERV 01-11 18:37 → 7EST 01-11 19:17
PROVIDERS: ADMIT Internal Medicine; ATTEND Internal Medicine
DX: A41.89 Other specified sepsis (principal); U07.1 COVID-19; J12.89 Other viral pneumonia; J96.01 Acute respiratory failure with hypoxia; N18.6 End stage renal disease; G93.41 Metabolic encephalopathy; N17.0 Acute kidney failure with tubular necrosis; E44.0 Moderate protein-calorie malnutrition; E87.0 Hyperosmolality and hypernatremia; I13.2 Hypertensive heart and chronic kidney disease with heart failure and with stage 5 chronic kidney disease, or end stage renal disease; E87.2 Acidosis; M62.82 Rhabdomyolysis; D68.59 Other primary thrombophilia; E87.1 Hypo-osmolality and hyponatremia; I50.32 Chronic diastolic (congestive) heart failure; J44.0 Chronic obstructive pulmonary disease with (acute) lower respiratory infection; N39.0 Urinary tract infection, site not specified; K92.0 Hematemesis; B19.20 Unspecified viral hepatitis C without hepatic coma; D72.810 Lymphocytopenia; E11.22 Type 2 diabetes mellitus with diabetic chronic kidney disease; D69.6 Thrombocytopenia, unspecified; E11.65 Type 2 diabetes mellitus with hyperglycemia; E83.42 Hypomagnesemia; E86.1 Hypovolemia; E87.6 Hypokalemia; F29 Unspecified psychosis not due to a substance or known physiological condition; G40.909 Epilepsy, unspecified, not intractable, without status epilepticus; I25.10 Atherosclerotic heart disease of native coronary artery without angina pectoris; I48.0 Paroxysmal atrial fibrillation; Z99.2 Dependence on renal dialysis; I25.2 Old myocardial infarction; Z91.19 Patient's noncompliance with other medical treatment and regimen; Z79.82 Long term (current) use of aspirin; Z79.899 Other long term (current) drug therapy
CPT/HCPCS: 36415; 36556; 36600; 71045; 80048; 80053; 80202; 81003; 82375; 82550; 82728; 82805; 82962; 83036; 83540; 83550; 83605; 83615; 83735; 83880; 84100; 84145; 84484; 85014; 85018; 85025; 85379; 85384; 86140; 86705; 86709; 86803; 87340; 87635; 87804; 92610; 93005; 99291; C9113; J1200; J1630; J1650; J1815; J2060; J2543; J2920; J3370; J3475; J3480; J3490; J7060; J7070; J7608; U0003-CS